=== PATIENT | female | born 1985 | race American Indian/Alaskan Native ===

== ENCOUNTER 2020-02-15 10:51 | Outpatient (CLI) | payer OTHER ==
[2020-03-08] MEDS ORDERED: NIFEDIPINE20 MG PO (12:01)
[2020-03-08] MEDS ORDERED: LOVENOX40 MG/0.4 SUBCUTANEO (12:01)
== END 2020-02-15 11:23 | disposition home or self-care (01) ==
LOC: NST 10:51
PROVIDERS: ATTEND Obstetrics & Gynecology Maternal & Fetal Medicine
DX: Z34.83 Encounter for supervision of other normal pregnancy, third trimester (principal)

== ENCOUNTER 2020-02-17 09:15 | Outpatient (CLI) | payer OTHER ==
[2020-03-08] MEDS ORDERED: NIFEDIPINE20 MG PO (12:01)
[2020-03-08] MEDS ORDERED: LOVENOX40 MG/0.4 SUBCUTANEO (12:01)
== END 2020-02-17 12:00 | disposition home or self-care (01) ==
LOC: NST 09:15
PROVIDERS: ATTEND Obstetrics & Gynecology Maternal & Fetal Medicine
DX: Z34.83 Encounter for supervision of other normal pregnancy, third trimester (principal)

== ENCOUNTER 2020-02-19 09:08 | Outpatient (CLI) | payer OTHER ==
[2020-03-08] MEDS ORDERED: NIFEDIPINE20 MG PO (12:01)
[2020-03-08] MEDS ORDERED: LOVENOX40 MG/0.4 SUBCUTANEO (12:01)
== END 2020-02-19 09:49 | disposition home or self-care (01) ==
LOC: NST 09:08
PROVIDERS: ATTEND Obstetrics & Gynecology
DX: Z34.83 Encounter for supervision of other normal pregnancy, third trimester (principal)

== ENCOUNTER 2020-02-22 08:05 | Inpatient (IN) | payer OTHER ==
[~2020-02-22] VITALS: Ht 152.4 cm; Wt 57.6 kg
[2020-02-22] MEDS ORDERED: PRENATAL TABLE1 EACH PO (10:42)
[2020-03-08] MEDS ORDERED: LOVENOX40 MG/0.4 SUBCUTANEO (12:01)
[2020-03-08] MEDS ORDERED: NIFEDIPINE20 MG PO (12:01)
== END 2020-03-05 09:04 | disposition home or self-care (01) | DRG 833 ==
LOC: NST 08:05 → LDR 10:08 → OB/GYN 02-25 08:52
PROVIDERS: ADMIT Obstetrics & Gynecology; ATTEND Obstetrics & Gynecology
PROC: 4A0HXFZ Measurement of Products of Conception, Cardiac Rhythm, External Approach (ICD-10-PCS; principal; 2020-02-22)
PROC: BY4FZZZ Ultrasonography of Third Trimester, Single Fetus (ICD-10-PCS; 2020-02-26)
PROC: BY4FZZZ Ultrasonography of Third Trimester, Single Fetus (ICD-10-PCS; 2020-02-26)
PROC: BY4FZZZ Ultrasonography of Third Trimester, Single Fetus (ICD-10-PCS; 2020-02-26)
PROC: BY4FZZZ Ultrasonography of Third Trimester, Single Fetus (ICD-10-PCS; 2020-03-04)
PROC: BY4FZZZ Ultrasonography of Third Trimester, Single Fetus (ICD-10-PCS; 2020-03-04)
DX: O36.5930 Maternal care for other known or suspected poor fetal growth, third trimester, not applicable or unspecified (principal); O35.0XX0 Maternal care for (suspected) central nervous system malformation in fetus, not applicable or unspecified; O26.843 Uterine size-date discrepancy, third trimester

== ENCOUNTER 2020-03-08 10:52 | Inpatient (IN) | payer OTHER | END 2020-03-16 13:12 | disposition home or self-care (01) | DRG 786 | LOC: LDR 10:52 → O/R 03-13 13:13 → OB/GYN 03-13 13:36 | PROVIDERS: ADMIT Obstetrics & Gynecology | PROC: 4A1HXCZ Monitoring of Products of Conception, Cardiac Rate, External Approach (ICD-10-PCS; 2020-03-08) | PROC: BY4FZZZ Ultrasonography of Third Trimester, Single Fetus (ICD-10-PCS; 2020-03-08) | PROC: BY4FZZZ Ultrasonography of Third Trimester, Single Fetus (ICD-10-PCS; 2020-03-11) | PROC: 10D00Z1 Extraction of Products of Conception, Low, Open Approach (ICD-10-PCS; principal; 2020-03-13) | DX: O36.8131 Decreased fetal movements, third trimester, fetus 1 (principal); O60.14X1 Preterm labor third trimester with preterm delivery third trimester, fetus 1; O36.5931 Maternal care for other known or suspected poor fetal growth, third trimester, fetus 1; Z3A.31 31 weeks gestation of pregnancy; Z37.0 Single live birth ==